=== PATIENT | male | born 1980 | race Caucasian/White ===

== ENCOUNTER 2021-12-20 17:56 | Emergency (ER) | payer OTHER, SELFPAY ==
[2021-12-20 18:09] VITALS: BP 139/96; PULSE 103; RESP 16; TEMP 37.6; O2SAT 99
--- NOTE | 2021-12-20 18:49 | ED.EXTPRO ---
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 Patient has pain noted with ROM of right elbow, strong pulses to right arm, denies any tingling or numbness, states that right hand feels tight also. MD Complaint: extremity pain and extremity swelling (Right elbow) Onset (ago): hour(s) (today) Severity scale (1-10): 4 Exacerbating factors: range of motion Related Data Home Medications Medication Instructions Recorded Confirmed escitalopram oxalate 10 mg tablet 10 mg PO DAILY 12/20/21 12/20/21 Allergies Allergy/AdvReac Type Severity Reaction Status Date / Time No Known Allergies Allergy Verified 12/20/21 18:33 Review of Systems Review of Systems: CONSTITUTIONAL: Denies fever, chills, or sweats. EYES: Denies visual changes, redness, or discharge. ENT: Denies rhinorrhea, congestion, sore throat, or otalgia. CARDIOVASCULAR: Denies chest pain, palpitations, or edema. RESPIRATORY: Denies cough or dyspnea. GASTROINTESTINAL: Denies abdominal pain, nausea, vomiting, or diarrhea. GENITOURINARY: Denies dysuria or hematuria. SKIN: Denies rash or itching. MUSCULOSKELETAL: Denies back pain,positive for right elbowjoint pain, or myalgia. NEUROLOGIC: Denies headache, numbness, or weakness. PSYCHIATRIC: Positive for history of anxiety or depression. All systems reviewed & are unremarkable except as noted in HPI and below PMFSH Past Medical History Medical History (Updated 12/23/21 @ 13:00 by Verónica Blue NP) Anxiety Effusion of knee joint right Surgical History Surgical History (Updated 12/23/21 @ 13:00 by Verónica Blue NP) No history of previous surgery Family History Family History Father Diabetes mellitus Family history of hypercholesterolemia Patient's father is in good health Mother Hypertension Cerebrovascular accident Patient's mother is in good health Grandparent Family history of cardiovascular disease Sibling Patient's sister is in good health Patient's brother is in good health Social History Social History Smoking status: Never smoker Second hand tobacco smoke exposure: Yes Alcohol intake: current Comments At time of signature, agree with nursing past medical, surgical, social and family history. There is no relevant family history pertinent to the presenting complaint Exam Narrative: GENERAL: Well-appearing, well-nourished, and in no acute distress. HEAD: Normocephalic, atraumatic. EYES: PERRLA and EOMI. ENT: Nares clear, no rhinorrhea or epistaxis. Mucous membranes moist.TM's normal throat pink with no abnormality noted. NECK: Supple. no lymphadenopathy CHEST: Clear to auscultation. No respiratory distress.SAO2 99% on room air HEART: Regular rate and rhythm. No murmur heard. Normal peripheral pulses. ABDOMEN: Soft, nontender, nondistended, normal active bowel sounds. EXTREMITIES: Normal range of motion. Noted edema to right elbow region with pain with ROM of right elbow, no obvious olecranon bursa enlargement visualized, no tingling or numbness to right arm with strong pulses palpable.Full ROM of right elbow but with discomfort verbalized SKIN: Warm, dry, no rash. NEURO: No focal deficits. Alert and oriented x3. Course Course Level of Care: Express Care Visit Vital Signs Vital signs: Vit
== END 2021-12-20 19:06 | disposition home or self-care (01) ==
PROVIDERS: Emergency Provider Registered Nurse
DX: M70.31 Other bursitis of elbow, right elbow (principal); F41.9 Anxiety disorder, unspecified
CPT/HCPCS: 99213; G0463

== ENCOUNTER 2023-12-11 17:19 | Emergency (ER) | payer OTHER, SELFPAY ==
--- NOTE | ~2023-12-11 | XR_ITS ---
EXAMINATION: XR ankle LT min 3V DATE: 12/11/2023 17:53 INDICATION: Posttraumatic lateral left ankle pain TECHNIQUE: Anteroposterior, oblique, mortise, and lateral views of the left ankle were obtained. COMPARISON: None. FINDINGS: Alignment is normal. Small corticated heterotopic ossicle near the tip the medial malleolus likely se quela of chronic trauma. No fracture. Joint spaces are well maintained. No ankle joint effusion. Mod erate-sized plantar calcaneal spur. Small enthesopathic ossicle at the distal Achilles tendon. Soft t issue swelling about the lateral malleolus. IMPRESSION: 1. No acute osseous abnormality. Reviewed, dictated and finalized at location A.
[2023-12-11 17:34] VITALS: BP 131/87; PULSE 75; RESP 16; TEMP 37.1; O2SAT 99
--- NOTE | 2023-12-11 17:34 | ED.LOWEXIN ---
HPI - Extremity Injury (Lower) General Chief Complaint: Extremity Injury, Lower Stated Complaint: Left Ankle Pain Time Seen by Provider: 12/11/23 17:45 Source: patient Mode of arrival: ambulatory Limitations: no limitations History of Present Illness HPI Narrative: Paul is a 43-year-old male patient presenting to the clinic today with complaints of left lateral ankle pain after rolling his ankle today while at work. He reports he was getting out of a concrete barrel and stepped on some broken concrete and twisted his ankle and fell down. Is having pain to the lateral ankle. States the pain gradually got better over day however now it is hurting and feels more swollen is painful to ambulate. Related Data Home Medications Medication Instructions Recorded Confirmed No Home Medications 12/11/23 12/11/23 Allergies Allergy/AdvReac Type Severity Reaction Status Date / Time No Known Allergies Allergy Verified 12/11/23 17:36 Review of Systems Review of Systems: Pertinent positives per HPI. Patient denies any fever, chills, rash, headache, visual changes, dizziness, cough, runny nose, sore throat, shortness of breath, chest pain, palpitations, nausea, vomiting, diarrhea, constipation, abdominal pain, or any urinary issues. [facility] Past Medical History Medical History Anxiety Effusion of knee joint right Surgical History Surgical History No history of previous surgery Family History Family History Father Diabetes mellitus Family history of hypercholesterolemia Patient's father is in good health Mother Hypertension Cerebrovascular accident Patient's mother is in good health Grandparent Family history of cardiovascular disease Sibling Patient's sister is in good health Patient's brother is in good health Social History Social History Smoking status: Never smoker Second hand tobacco smoke exposure: Yes Alcohol intake: current Comments At the time of my signature, I reviewed and agree with the nursing past medical, surgical, social, and family history. There is no relevant family history pertinent to the patient complaint. Exam Narrative: General: Well-developed, well nourished, in no apparent distress Head: Normocephalic, atraumatic. Cardio: Regular rate and rhythm, s1 and s2 normal, no murmur appreciated. Resp: Clear to auscultation bilaterally, no rhonchi, rales, wheezing or rubs. Musculoskeletal: No deformity, tender to palpation over the left lateral ankle, pain with valgus and varus testing, grossly normal range of motion, muscle strength strong and equal, peripheral pulse strong, no edema, no cyanosis, normal gait and station Course Course Emergency Course: Portions of this record may have been created with voice recognition software. Level of Care: Express Care Visit Vital Signs Vital signs: Vital Signs Temperature 37.1 C 12/11/23 17:34 Pulse Rate 75 12/11/23 17:34 Respiratory Rate 16 12/11/23 17:34 Blood Pressure 131/87 12/11/23 17:34 Pulse Oximetry 99 12/11/23 17:34 Oxygen Delivery Room Air 12/11/23 17:34 Temperature 37.1 C 12/11/23 17:34 Pulse Rate 75 12/11/23 17:34 Respiratory Rate 16 12/11/23 17:34 Blood Pressure 131/87 12/11/23 17:34 Pulse Oximetry 99 12/11/23 17:34 Oxygen Delivery Room Air 12/11/23 17:34 Vital signs reviewed MDM - Extremity Injury (Lower) MDM Narrative Medical decision making narrative: At the time of visit patient is resting comfortably on the exam table. Patient appears to be nontoxic. Diagnostics: X-ray of the left ankle was negative for any sign of fracture or malalignment. Plan: I suspect patient has right ankle sprain. Supportive measures were disc
== END 2023-12-11 18:15 | disposition home or self-care (01) ==
PROVIDERS: Emergency Provider Nurse Practitioner Family
DX: S93.402A Sprain of unspecified ligament of left ankle, initial encounter (principal); X50.9XXA Other and unspecified overexertion or strenuous movements or postures, initial encounter; Y99.0 Civilian activity done for income or pay
CPT/HCPCS: 73610; 99213; G0463